=== PATIENT | male | born 1965 | race Caucasian/White ===

== ENCOUNTER 2020-03-27 02:41 | Inpatient (IN) | payer MEDICAID, OTHER ==
[~2020-03-27] VITALS: Ht 167.6 cm; Wt 115.3 kg
[2020-03-27] MEDS ORDERED: ONDANSETRON HCL 4MG/2ML INJ IV STA (03:18)
[2020-03-27] MEDS ORDERED: MORPHINE SULFATE 4 MG/ML CPJ (NOT FOR IM USE) IV STA (03:18)
[2020-03-27 03:40] LABS: BASOPHILS % 0.2 % (0.0-2.0); EOSINOPHILS % 0.3 % (0.0-5.0); HEMATOCRIT. 45.5 % (42.0-52.0); HEMOGLOBIN. 15.7 g/dL (14.0-18.0); LYMPHOCYTES % 7.2 % (20.0-50.0); MEAN CORPUSCULAR HEMOGLOBIN 28.4 pg (28.0-32.0); MEAN CORPUSCULAR VOLUME 82.5 fL (80.0-94.0); MEAN PLATELET VOLUME 8.4 fl (7.4-10.4); NEUTROPHILS % 84.3 % (40.0-76.0); PLATELET 238 x1000/uL (130-400); RED BLOOD CELL COUNT 5.51 mill/uL (4.7-6.1); RED CELL DISTRIBUTION WIDTH 14.6 % (11.6-14.6)
[2020-03-27 03:49] LABS: CHLORIDE 99 mEq/L (98-107)
[2020-03-27] MEDS ORDERED: SODIUM CHLORIDE 0.9% 1,000 ML IV ONE (04:09)
[2020-03-27] MEDS ORDERED: CEFTRIAXONE 1 G PREMIX 50 ML IV ONE (04:15)
[2020-03-27] MEDS ORDERED: FENTANYL CITRATE/PF 50MCG/ML 2ML VIAL IV ONE (04:15)
[2020-03-27 04:25] LABS: CLARITY URINE CLEAR (CLEAR); COLOR URINE DARK YELLOW (YELLOW); KETONES URINE 1+ (NEGATIVE); LEUKOCYTE ESTERASE URINE TRACE (NEGATIVE); NITRITE URINE NEGATIVE (NEGATIVE); OCCULT BLOOD URINE NEGATIVE (NEGATIVE); PROTEIN URINE TRACE (NEGATIVE); SPECIFIC GRAVITY URINE 1.018 (1.005-1.030)
[2020-03-27] MEDS ORDERED: SODIUM CHLORIDE 0.9% 1,000 ML IV SCH (09:46)
[2020-03-27 10:00] VITALS: BP 215/121
[2020-03-27] MEDS ORDERED: HYDRALAZINE 20MG/ML VIAL IV PRN ×2 (10:00→18:30)
[2020-03-27] MEDS ORDERED: ACETAMINOPHEN 325MG TABLET PO PRN (10:00)
[2020-03-27] MEDS ORDERED: CLONIDINE 0.1MG TABLET PO PRN (10:00)
[2020-03-27] MEDS ORDERED: ONDANSETRON HCL 4MG/2ML INJ IV PRN (10:00)
[2020-03-27] MEDS ORDERED: HYDRALAZINE 10 MG in SODIUM CHLORIDE 0.9% 49.5 ML IV PRN (10:30)
[2020-03-27] MEDS: HYDROMORPHONE HCL/PF 2MG/ML CPJ IV PRN ×3 (10:36→22:57)
[2020-03-27 11:18] LABS: HEMATOCRIT. 47.5 % (42.0-52.0); HEMOGLOBIN. 16.3 g/dL (14.0-18.0); MEAN CORPUSCULAR HEMOGLOBIN 28.5 pg (28.0-32.0); MEAN CORPUSCULAR VOLUME 82.8 fL (80.0-94.0); MEAN PLATELET VOLUME 8.2 fl (7.4-10.4); PLATELET 316 x1000/uL (130-400); RED BLOOD CELL COUNT 5.73 mill/uL (4.7-6.1); RED CELL DISTRIBUTION WIDTH 14.5 % (11.6-14.6)
[2020-03-27 11:46] LABS: CHLORIDE 98 mEq/L (98-107)
[2020-03-27] MEDS ORDERED: ASPI-1497 PO (13:02)
[2020-03-27] MEDS ORDERED: LISI-604 PO (13:02)
[2020-03-27] MEDS ORDERED: HYDROMORPHONE HCL/PF 2MG/ML CPJ IV SCH (13:15)
[2020-03-27] MEDS: SODIUM CHLORIDE 0.9% 1,000 ML IV SCH (13:41)
[2020-03-27] MEDS: PIPERACILLIN/TAZOBACTAM 3.375 G in DEXT 5% WATER 100 ML IV SCH ×2 (13:44→21:23)
[2020-03-27] MEDS ORDERED: HYDROMORPHONE HCL/PF 2MG/ML CPJ IV NR (14:15)
[2020-03-27] MEDS: MINOXIDIL 2.5MG TABLET PO SCH (15:43)
[2020-03-27 16:00] VITALS: BP_SYST 196; BP_SYST 207; BP_DIAS 108; BP_DIAS 114
[2020-03-27 16:46] LABS: HEPATITIS B SURFACE ANTIGEN NEGATIVE
[2020-03-27 16:56] LABS: PLATELET ESTIMATE NORMAL
[2020-03-27 17:15] LABS: HEPATITIS A AB IGM NEGATIVE (NEGATIVE)
[2020-03-27 19:53] VITALS: BP 190/108
[2020-03-27 20:01] VITALS: BP 181/121
[2020-03-27 21:25] VITALS: BP 187/109
[2020-03-27 22:53] VITALS: BP 182/106
[2020-03-28] VITALS (8 sets, daily range): BP systolic 101–194; BP diastolic 56–109
[2020-03-28] MEDS ORDERED: HYDROMORPHONE HCL/PF 2MG/ML CPJ IV NR (00:30)
[2020-03-28] MEDS ORDERED: MINOXIDIL 2.5MG TABLET PO NR (00:30)
[2020-03-28] MEDS: KETOROLAC 30MG/ML VIAL IV SCH ×3 (01:20→12:38)
[2020-03-28] MEDS ORDERED: HYDROMORPHONE HCL/PF 2MG/ML CPJ IV PRN (01:30)
[2020-03-28 03:45] LABS: *AMPHETAMINES SCREEN URINE PRESUMTIVE POSITIVE (NEGATIVE); *BARBITURATES SCREEN URINE NEGATIVE (NEGATIVE); *BENZODIAZEPINES SCREEN URINE NEGATIVE (NEGATIVE); *COCAINE SCREEN URINE NEGATIVE (NEGATIVE)
[2020-03-28 03:46] LABS: CANNABINOID URINE SCREEN NEGATIVE (NEGATIVE); METHADONE URINE SCREEN NEGATIVE (NEGATIVE); OPIATES URINE SCREEN PRESUMTIVE POSITIVE (NEGATIVE); PHENCYCLIDINE URINE SCREEN PRESUMTIVE POSITIVE (NEGATIVE)
[2020-03-28] MEDS: PIPERACILLIN/TAZOBACTAM 3.375 G in DEXT 5% WATER 100 ML IV SCH ×2 (05:07→12:38)
[2020-03-28] MEDS: SODIUM CHLORIDE 0.9% 1,000 ML IV SCH ×2 (05:11→12:56)
[2020-03-28 07:10] LABS: CHLORIDE 100 mEq/L (98-107)
[2020-03-28 07:22] LABS: HDL CHOLESTEROL 16 mg/dL (40-59); LDL CHOLESTEROL 77 mg/dL (5-100)
[2020-03-28 07:23] LABS: GAMMA GLUTAMYL TRANSPEPTIDASE 633 IU/L (11-50)
[2020-03-28 07:47] LABS: HEMATOCRIT. 54.7 % (42.0-52.0); HEMOGLOBIN. 18.4 g/dL (14.0-18.0); MEAN CORPUSCULAR HEMOGLOBIN 28.2 pg (28.0-32.0); MEAN CORPUSCULAR VOLUME 83.9 fL (80.0-94.0); MEAN PLATELET VOLUME 8.7 fl (7.4-10.4); PLATELET 413 x1000/uL (130-400); RED BLOOD CELL COUNT 6.52 mill/uL (4.7-6.1); RED CELL DISTRIBUTION WIDTH 15.1 % (11.6-14.6)
[2020-03-28 08:31] LABS: INR 1.2; PARTIAL THROMBOPLASTIN TIME 27.8 sec (23.4-31.0); PROTHROMBIN TIME 12.6 sec (9.6-11.0)
[2020-03-28 08:53] LABS: C REACTIVE PROTEIN CARDIAC > 190.00 mg/L (0.00-3.00)
[2020-03-28] MEDS ORDERED: PANTOPRAZOLE SODIUM 40 MG/VIAL IV SCH (09:00)
[2020-03-28] MEDS ORDERED: LIDOCAINE HCL 1% 20ML VIAL (Pyxis) INJ ONE (10:32)
[2020-03-28] MEDS: MINOXIDIL 2.5MG TABLET PO SCH (10:46)
[2020-03-28] MEDS ORDERED: OCTREOTIDE 1,000 MCG in SODIUM CHLORIDE 0.9% 98 ML IV SCH (11:00)
[2020-03-28] MEDS ORDERED: LACTATED RINGERS 1,000 ML IV ONE (11:00)
[2020-03-28] MEDS ORDERED: VANCOMYCIN 2,000 MG in DEXT 5% WATER 500 ML IV SCH (11:00)
[2020-03-28 12:03] LABS: BG BASE EXCESS -8.6 mmol/L (-2.0-2.0); BG CARBOXYHEMOGLOBIN 0.7 % (0.5-1.5); BG DEOXYHEMOGLOBIN 7.8 % (0.0-5.0); BG FRACTION INSPIRED OXYGEN 28; BG HCO3 ACT 12.9 mmol/L (22.0-26.0); BG METHEMOGLOBIN 0.2 % (0.0-1.5); BG OXYGEN SATURATION 92.1 % (92.0-98.5); BG OXYHEMOGLOBIN 91.3 % (94.0-97.0); BG PCO2 20.7 mmHg (35.0-45.0); BG PH 7.414 (7.350-7.450); BG PO2 64.3 mmHg (75.0-100.0); BG SAMPLE SITE RIGHT RADIAL; BG TOTAL HEMOGLOBIN 17.8 g/dL (12.0-18.0); BG VENT MODE NASAL CANNULA
[2020-03-28 12:47] LABS: PLATELET ESTIMATE INCREASED
[2020-03-28] MEDS ORDERED: VASOPRESSIN 10 UNIT in SODIUM CHLORIDE 0.9% 100 ML IV ONE (15:15)
[2020-03-28 15:51] LABS: HEMATOCRIT. 44.4 % (42.0-52.0); MEAN CORPUSCULAR HEMOGLOBIN 28.5 pg (28.0-32.0); MEAN PLATELET VOLUME 9.6 fl (7.4-10.4); PLATELET 277 x1000/uL (130-400); RED BLOOD CELL COUNT 4.88 mill/uL (4.7-6.1); RED CELL DISTRIBUTION WIDTH 16.1 % (11.6-14.6)
[2020-03-28 15:57] LABS: HEMOGLOBIN. 13.9 g/dL (14.0-18.0)
[2020-03-28 16:01] LABS: INR 1.6; PROTHROMBIN TIME 16.7 sec (9.6-11.0)
[2020-03-28 16:17] LABS: BG FRACTION INSPIRED OXYGEN 100; BG PCO2 135.4 mmHg (35.0-45.0); BG PH < 6.680 (7.350-7.450); BG PO2 52.3 mmHg (75.0-100.0); BG SAMPLE SITE RIGHT RADIAL; BG TIDAL VOLUME(mL) 550 mL; BG VENT MODE VENT - A/C; BG VENT RATE 16 set
[2020-03-28 16:21] LABS: NUCLEATED RED BLOOD CELLS 1 /100 WBC; PLATELET ESTIMATE NORMAL
[2020-03-28] MEDS ORDERED: ALBUMIN HUMAN 25GM/100ML (25%) IV NR (17:00)
[2020-03-28] MEDS ORDERED: ALBUMIN HUMAN 12.5G/250ML (5%) IV NR (17:00)
[2020-03-28] MEDS ORDERED: VASOPRESSIN 10 UNIT in SODIUM CHLORIDE 0.9% 99.5 ML IV PRN (17:15)
[2020-03-28] MEDS ORDERED: EPINEPHRINE 1 MG in SODIUM CHLORIDE 0.9% 249 ML IV PRN (17:15)
[2020-03-28] MEDS ORDERED: NOREPINEPHRINE 32 MG in DEXT 5% WATER 468 ML IV PRN (17:15)
[2020-03-28] MEDS ORDERED: DOPAMINE 800MG PREMIX (DOUBLE) 250 ML IV PRN (17:45)
[2020-03-28] MEDS ORDERED: CALCIUM CHLORIDE 1GM/10ML SYR IV ONE (19:17)
[2020-03-28] MEDS ORDERED: EPINEPHRINE 0.1MG/ML (1:10,000) 10ML SYR ONE (19:17)
[2020-03-28] MEDS ORDERED: SODIUM BICARBONATE 8.4% MEQ/ML 50ML VIAL IV ONE (19:17)
[2020-03-28] MEDS ORDERED: PHENYLEPHRINE 40 MG in DEXT 5% WATER 246 ML IV PRN (20:00)
== END 2020-03-28 19:34 | disposition expired | DRG 720 ==
LOC: ER 02:41 → 6EST 05:33 → EDBEDREQ 08:07 → ENRESERV 08:34 → 3WST 17:25 → CVICU 03-28 09:29
PROVIDERS: ADMIT Internal Medicine; ATTEND Internal Medicine
PROC: 02HV33Z Insertion of Infusion Device into Superior Vena Cava, Percutaneous Approach (ICD-10-PCS; principal; 2020-03-28)
PROC: B548ZZA Ultrasonography of Superior Vena Cava, Guidance (ICD-10-PCS; 2020-03-28)
PROC: 30233K1 Transfusion of Nonautologous Frozen Plasma into Peripheral Vein, Percutaneous Approach (ICD-10-PCS; 2020-03-28)
PROC: 30233N1 Transfusion of Nonautologous Red Blood Cells into Peripheral Vein, Percutaneous Approach (ICD-10-PCS; 2020-03-28)
PROC: 30233R1 Transfusion of Nonautologous Platelets into Peripheral Vein, Percutaneous Approach (ICD-10-PCS; 2020-03-28)
PROC: 5A12012 Performance of Cardiac Output, Single, Manual (ICD-10-PCS; 2020-03-28)
PROC: 0BH17EZ Insertion of Endotracheal Airway into Trachea, Via Natural or Artificial Opening (ICD-10-PCS; 2020-03-28)
PROC: 5A1935Z Respiratory Ventilation, Less than 24 Consecutive Hours (ICD-10-PCS; 2020-03-28)
DX: A41.9 Sepsis, unspecified organism (principal); K80.00 Calculus of gallbladder with acute cholecystitis without obstruction; I16.0 Hypertensive urgency; R74.0 Nonspecific elevation of levels of transaminase and lactic acid dehydrogenase [LDH]; E66.01 Morbid (severe) obesity due to excess calories; Z68.41 Body mass index [BMI] 40.0-44.9, adult; I10 Essential (primary) hypertension; R16.0 Hepatomegaly, not elsewhere classified; E78.00 Pure hypercholesterolemia, unspecified; E78.5 Hyperlipidemia, unspecified; E86.0 Dehydration; F17.210 Nicotine dependence, cigarettes, uncomplicated; I25.10 Atherosclerotic heart disease of native coronary artery without angina pectoris; I46.9 Cardiac arrest, cause unspecified; K76.0 Fatty (change of) liver, not elsewhere classified; K74.60 Unspecified cirrhosis of liver; R65.21 Severe sepsis with septic shock; B18.2 Chronic viral hepatitis C; N17.9 Acute kidney failure, unspecified; K82.8 Other specified diseases of gallbladder; F15.10 Other stimulant abuse, uncomplicated; K92.0 Hematemesis; R18.8 Other ascites; F16.10 Hallucinogen abuse, uncomplicated; E66.9 Obesity, unspecified; Z03.818 Encounter for observation for suspected exposure to other biological agents ruled out
CPT/HCPCS: 36415; 36600; 71045; 74176; 76705; 76937; 80048; 80053; 80061; 80076; 80305; 81003; 82140; 82248; 82375; 82805; 82962; 82977; 83036; 83735; 84484; 85025; 85651; 86141; 86705; 86709; 86803; 86850; 86900; 86920; 86927; 87340; 92950; 93005; 93970; 94002; 99285; C1725; C9113; J0360; J0696; J1170; J1265; J1885; J2270; J2354; J2405; J2543; J3010; J3370; J3490; J7030; J7050; J7060; P9016; P9017; P9021; P9034; P9041; P9047; U0003-CS